=== PATIENT | male | born 1960 | race Caucasian/White ===

== ENCOUNTER 2019-07-14 10:02 | Inpatient (IN) | payer MEDICAID ==
[~2019-07-14] VITALS: Ht 177.8 cm; Wt 153.3 kg
[2019-07-14 10:42] LABS: HEMATOCRIT 46.2 % (42.0-54.0); HEMOGLOBIN 15.5 g/dL (13.5-17.5); LYMPHOCYTES 26.8 % (15-50); MCH 27.5 pg (26.0-34.0); MCHC 33.5 g/dL (31.0-37.0); MCV 81.9 fL (80.0-100.0); MEAN PLATELET VOLUME 10.4 fL (7.4-10.4); NEUTROPHILS 66.5 % (40-80); PLATELET COUNT 169 10x3/uL (130-400); RBC 5.64 10x6/uL (4.20-6.10); RDW 12.9 % (11.5-14.5); WBC 6.6 10x3/uL (4.8-10.8)
[2019-07-14 10:47] LABS: KETONE - SERUM NEGATIVE (NEGATIVE)
[2019-07-14 10:56] LABS: ALBUMIN 3.8 g/dL (3.4-5.0); ALKALINE PHOSPHATASE 132 U/L (46-116); ALT (SGPT) 38 U/L (10-68); BILIRUBIN - TOTAL 0.79 mg/dL (0.2-1.3); CALCIUM 9.7 mg/dL (8.5-10.1); CARBON DIOXIDE 29.4 mmol/L (21.0-32.0); CHLORIDE - SERUM 90 mmol/L (98-107); CREATININE - SERUM 0.9 mg/dL (0.6-1.3); MAGNESIUM - SERUM 2.1 mg/dL (1.8-2.4); POTASSIUM - SERUM 4.6 mmol/L (3.5-5.1); PROTEIN - SERUM 8.5 g/dL (6.4-8.2); SODIUM 126 mmol/L (136-145); UREA NITROGEN 25 mg/dL (7-18); eGFR NON AFRICAN AMERICAN > 90 mL/min (90-120)
[2019-07-14 10:58] LABS: CALC OSMOLALITY 291 mosm/kg (275-300); GLUCOSE 731 mg/dL (74-106)
--- NOTE | 2019-07-14 11:30 | NUR ---
URINE SENT TO THE LAB
[2019-07-14 11:38] LABS: APPEARANCE CLEAR (CLEAR); COLOR STRAW (YELLOW); GLUCOSE 1000 mg/dL (NEGATIVE); KETONE LARGE mg/dL (NEGATIVE); NITRITE NEGATIVE (NEGATIVE); PROTEIN NEGATIVE (NEGATIVE); SPECIFIC GRAVITY 1.005 (1.005-1.020)
[2019-07-14 11:39] LABS: BILIRUBIN NEGATIVE (NEGATIVE); UROBILINOGEN NORMAL (NORMAL)
--- NOTE | 2019-07-14 11:44 | NUR ---
BLOOD SUGAR 534
[2019-07-14 12:44] VITALS: BP 116/76
--- NOTE | 2019-07-14 12:55 | NUR ---
PT ARRIVED TO FLOOR FROM ER. FAMILY AT BEDSIDE. VSS AND WNL. DENIES ANY NEEDS AT THIS TIME. WILL CONT TO FOLLOW POC
[2019-07-14 16:08] VITALS: BP 112/81
--- NOTE | 2019-07-14 16:58 | NUR ---
PT SITTING ON SIDE OF BED EATING SUPPER. FAMILY AT BEDSIDE. DENIES ANY NEEDS AT THIS TIME, WILL CONT TO FOLLOW POC
--- NOTE | 2019-07-14 18:01 | NUR ---
PATIENT HAS ARRIVED FROM [facility]. ADMISSION HAS BEEN DONE. PATIENT CAME INTO ER TODAY WITH NEW ONSET DIABETES. BLOOD SUGAR HAS BEEN TREATED. PATIENT IS ALERT AND AWAKE AND IS SITTING UP IN BED. FAMILY AT BEDSIDE.
[2019-07-14 20:00] VITALS: BP 164/84
--- NOTE | 2019-07-14 22:00 | NUR ---
INITIAL ROUNDS COMPLETED AT 1910 HRS. PT DENIED ANY DISCOMFORT. ASSESSMENT COMPLETED AT 1935 HRS. VSS. ALERT AND ORIENTED TO PERSON, PLACE AND TIME. TRUJILLO. IV TO LAC WITH NS AT 100CC/HR. IV PATENT. LUNGS CTA. TRUJILLO. PM FSBS 337. 20 UNITS REG INSULIN GIVEN SUB-Q TO UPPER R ARM. PM SNACK SERVED. PT CURRENTLY WATCHNG TV. SR UP X2,CALL LIGHT WITHIN REACH AND FAMILY AT BEDSIDE.
--- NOTE | 2019-07-14 23:45 | NUR ---
PT RESTING WITH EYES CLOSED. RESP EVEN AND REGULAR. SR UP X1, CALL LIGHT WITHIN REACH.
[2019-07-15] VITALS: BP 106/58
--- NOTE | 2019-07-15 02:08 | NUR ---
PT RESTING WITH EYES CLOSED. RESP EVEN AND REGULAR. SR UP X1, CALL LIGHT WITHIN REACH.
[2019-07-15 04:00] VITALS: BP 112/82
--- NOTE | 2019-07-15 04:15 | NUR ---
PT RESTING WITH EYES CLOSED. RESP EVEN AND REGULAR. SR UP X2, CALL LIGHT WITHIN REACH.
[2019-07-15 04:50] LABS: CHOL - HDL RATIO 7.5 ratio (2.3-4.9); CHOLESTEROL, TOTAL 157 mg/dL (0-200); HDL CHOLESTEROL 21 mg/dL (32-96); TRIGLYCERIDE 458 mg/dL (30-200)
--- NOTE | 2019-07-15 06:38 | NUR ---
AM FSBS 313. 20 UNTS REG INSULIN GIVEN SUB-Q TO UPPER L ARM PER S/S. VSS THROUGHOUT NIGHT. RESTED WELL DURING SHIFT. NEEDS MET; WILL CONTINUE TO MONITOR.
--- NOTE | 2019-07-15 07:46 | NUR ---
PATIENT IS RESTING ON HIS BACK IN BED. FAMILY AT BEDSIDE. LIGHTS ARE DIM.
[2019-07-15 07:58] VITALS: BP 118/55
--- NOTE | 2019-07-15 10:45 | NUR ---
EDUCATION ABOUT DIABETIC FOOT CARE GIVEN TO PATIENT AND FAMILY.
[2019-07-15 12:41] VITALS: BP 116/75
[2019-07-15 17:04] VITALS: BP 122/63
--- NOTE | 2019-07-15 19:35 | NUR ---
INITIAL ROUNDS COMPLETED. PT DENIES ANY DISCOMFORT. CALL LIGHT WITHIN REACH.
[2019-07-15 20:00] VITALS: BP 115/69
--- NOTE | 2019-07-15 22:49 | NUR ---
ASSESSMENT COMPLETED AT 1955 HRS. VSS. ALERT AND ORIENTED TO PERSON, PLACE AND TIME. TRUJILLO. IV TO LAC WITH NS AT 100CC/HR. IV PATENT. LUNGS CTA. TRUJILLO. PM FSBS 311. 20 UNITS REG INSULIN GIVEN SUB-Q TO UPPER L ARM. PM LANTUS GIVEN. PT TOOK A HIBICLENS SHOWER. BED LINENS CHANGED. PT REFUSED FOR IV TO BE HOOKED BACK UP AFTER SHOWER. PT CURRENTLY RESTING WITH EYES CLOSED. RESP EVEN AND REGULAR. SR UP X2, CALL LIGHT WITHIN REACH AND SISTER AT BEDSIDE.
[2019-07-16] VITALS: BP 101/65
--- NOTE | 2019-07-16 00:06 | NUR ---
PT RESTING WITH EYES CLOSED. RESP EVEN AND REGULAR. SR UP X1, CALL LIGHT WITHIN REACH.
--- NOTE | 2019-07-16 01:52 | NUR ---
PT RESTING WITH EYES CLOSED. RESP EVEN AND REGULAR. SR UP X1, CALL LIGHT WITHIN REACH.
[2019-07-16 04:00] VITALS: BP 114/71
--- NOTE | 2019-07-16 04:35 | NUR ---
PT RESTING WITH EYES CLOSED. RESP EVEN AND REG. SR UP X2, CALL LIGHT WITHIN REACH.
[2019-07-16 05:53] LABS: BASOPHILS 0.2 % (0-2); EOSINOPHILS 3.4 % (0-7); HEMATOCRIT 40.6 % (42.0-54.0); HEMOGLOBIN 13.1 g/dL (13.5-17.5); IMMATURE GRANULOCYTES 2.6 % (0-5); LYMPHOCYTES 36.2 % (15-50); MCH 27.6 pg (26.0-34.0); MCHC 32.3 g/dL (31.0-37.0); MEAN PLATELET VOLUME 10.3 fL (7.4-10.4); NEUTROPHILS 50.6 % (40-80); PLATELET COUNT 157 10x3/uL (130-400); RBC 4.74 10x6/uL (4.20-6.10)
[2019-07-16 06:04] LABS: CALCIUM 8.1 mg/dL (8.5-10.1); CARBON DIOXIDE 27.3 mmol/L (21.0-32.0); CHLORIDE - SERUM 102 mmol/L (98-107); SODIUM 137 mmol/L (136-145)
[2019-07-16 06:08] LABS: CALC OSMOLALITY 280 mosm/kg (275-300); CREATININE - SERUM 0.6 mg/dL (0.6-1.3); GLUCOSE 238 mg/dL (74-106); MCV 85.7 fL (80.0-100.0); POTASSIUM - SERUM 3.4 mmol/L (3.5-5.1); UREA NITROGEN 10 mg/dL (7-18); WBC 4.7 10x3/uL (4.8-10.8); eGFR NON AFRICAN AMERICAN > 90 mL/min (90-120)
--- NOTE | 2019-07-16 07:31 | NUR ---
PATIENT IS SITTING UP IN BED. MORE TEACHING COMPLETED TO HIM AND HIS FAMILY ABOUT DIABETIC DIET. RESOURCES GIVEN. PATIENT DENIES ANY NEEDS AT THIS TIME.
[2019-07-16 08:27] VITALS: BP 115/71
--- NOTE | 2019-07-16 14:29 | MORECARE ---
CASE MANAGEMENT DISCHARGE SUMMARY PATIENT: DEE FAJARDO UNIT: [id number] ADM DATE: 07/14/19 AGE: 58 : 58 SEX: M ROOM/BED: D.2135 AUTHOR: SILAS AJ PHYSICIAN: REFERRING PHYSICIAN: SALLY MCGINNIS MD DATE OF SERVICE: 07/16/19 Discharge Plan Patient Name: [facility]EE FAJARDO [facility] : 1960 Planned Disposition: Home Anticipated Discharge Date: Discharge Date: Expected LOS: Initial Reviewer: [email or web address] Initial Review Date: 07/16/2019 Generated: 07/16/19 3:28 pm DCPIA - Discharge Planning Initial Assessment Updated by [email or web address]: Krista Platt on 07/16/19 2:28 pm * Is the patient Alert and Oriented? Yes * PCP WILL CALL WITH NAME * Pharmacy [facility] [place] * Preadmission Environment Home with Family * ADLs Independent * Other Equipment NONE * List name and contact numbers for known caregivers / representatives who currently or will assist patient after discharge: SISTER FERNANDEZ, * Additional services required to return to the preadmission environment? Yes * Can the patient safely return to the preadmission environment? Yes * Has this patient been hospitalized within the prior 30 days at any hospital? No Patient Name: DEE FAJARDO Page [phone] at 1429 All edits/amendments must be made on the electronic document DICTATION DATE: 07/16/191427 STEAM AND POWER SUPERVISOR: JENNIE 07/16/191427 RPT#: [id number] DC DATE: STATUS: ADM IN [facility] [address] [place] [address] END OF REPORT
--- NOTE | 2019-07-16 14:37 | MORECARE ---
CASE MANAGEMENT DISCHARGE SUMMARY PATIENT: DEE FAJARDO UNIT: [id number] ADM DATE: 07/14/19 AGE: 58 : 58 SEX: M ROOM/BED: D.1632 AUTHOR: MADAIDOC PHYSICIAN: REFERRING PHYSICIAN: SALLY MCGINNIS MD DATE OF SERVICE: 07/16/19 Discharge Plan Patient Name: DEE FAJARDO Facility: [facility]:[place] : 1960 Planned Disposition: Home Anticipated Discharge Date: Discharge Date: Expected LOS: Initial Reviewer: [email or web address] Initial Review Date: 07/16/2019 Generated: 07/16/19 3:36 pm DCP- Discharge Planning Updated by [email or web address]: Krista Platt on 07/16/19 1:[address] Patient Name: DEE FAJARDO Admission Status: ER Accout number: [id number] Admission Date: 07-14-2019 : 1960 Admission Diagnosis: Attending: SALLY MCGINNIS Current LOS: 2 Anticipated DC Date: Planned Disposition: Home Primary Insurance: MEDICAID [place] PENDING Discharge Planning Comments: CM MET WITH PATIENT TO DISCUSS DC PLANNING/NEEDS AFTER OBTAINING VERBAL CONSENT. PATIENT STATES MEDICAID IS PENDING BUT ONCE IT IS APPROVED HE WOULD LIKE HOME HEALTH FOR NEW DIABETIC TEACHING. HE IS CALLING ME LATER WITH HIS PCP NAME AND THE HH HE WOULD BE INTERESTED IN IF POSSIBLE. I WILL GIVE HIM INFORMATION ABOUT [facility] AND [facility]UNITY [facility]IST[facility] RX PROGRAM AND INFORMATION FOR GLUCOMETER PRICES. STATES LIVES WITH SISTER AND IS A SAFE ENVIRONMENT. DOESN'T KNOW YET IF HE WILL BE ON INSULIN INJECTIONS AT HOME OR PILLS. CM WILL FOLLOW AND ASSIST. Bookmobile Librarian: Krista Platt DCPIA - Discharge Planning Initial Assessment Updated by [email or web address]: Krista Platt on 07/16/19 2:28 pm * Is the patient Alert and Oriented? Yes * PCP WILL CALL WITH NAME * [facility] * Preadmission Environment Home with Family * ADLs Independent * Other Equipment NONE * List name and contact numbers for known caregivers / representatives who currently or will assist patient after discharge: SISTER FERNANDEZ, * Additional services required to return to the preadmission environment? Yes * Can the patient safely return to the preadmission environment? Yes * Has this patient been hospitalized within the prior 30 days at any hospital? No Last DP export: 07/16/19 1:29 Patient Name: DEE FAJARDO Page [id number] at 1437 All edits/amendments must be made on the electronic document DICTATION DATE: 07/16/191435 BROMINATION EQUIPMENT OPERATOR: JENNIE 07/16/191435 RPT#: [id number] DC DATE: STATUS: ADM IN [facility] [address] [place] [address] END OF REPORT
[2019-07-16 15:07] VITALS: Ht 177.8 cm; Wt 153.3 kg
[2019-07-16 17:19] VITALS: BP 91/67
--- NOTE | 2019-07-16 19:25 | NUR ---
ALERT AND DENIES NEEDS ASKS IF HE CAN STILL EAT FULL SUGAR ICE CREAM ATTEMPT MADE TO EDUCATE PT ABOUT HIS PREFERED DIET. LCTA SKIN WARM AND DRY AND BED LOW AND LOCKED CALL LIGHT IS IN REACH VISITOR IS PRESENT
[2019-07-16 20:00] VITALS: BP 112/74
[2019-07-17] VITALS: BP 112/66
[2019-07-17 04:00] VITALS: BP 121/79
--- NOTE | 2019-07-17 05:35 | NUR ---
FOUND IV OUT CATHETER INTACT
[2019-07-17 06:22] LABS: CALC OSMOLALITY 278 mosm/kg (275-300); CALCIUM 8.3 mg/dL (8.5-10.1); CARBON DIOXIDE 26.9 mmol/L (21.0-32.0); CHLORIDE - SERUM 105 mmol/L (98-107); CREATININE - SERUM 0.6 mg/dL (0.6-1.3); POTASSIUM - SERUM 3.5 mmol/L (3.5-5.1); SODIUM 138 mmol/L (136-145); UREA NITROGEN 9 mg/dL (7-18); eGFR NON AFRICAN AMERICAN > 90 mL/min (90-120)
[2019-07-17 06:24] LABS: GLUCOSE 177 mg/dL (74-106)
--- NOTE | 2019-07-17 07:00 | NUR ---
RECEIVED REPORT. ASSUMED CARE OF PATIENT. BEDSHIFT ROUNDING COMPLETE. PATIENT RESTING WITH EYES CLOSED AT THIS TIME. RESP EVEN AND UNLABORED. CALL LIGHT WITHIN REACH. NO DISTRESS. NO FAMILY AT BEDSIDE. WHITE BOARD UPDATED.
--- NOTE | 2019-07-17 08:11 | NUR ---
PATIENT AWAKE NOW AND SITTING UP TO EAT AM MEAL, CALL LIGHT WITHIN REACH. DENIES NEEDS. THANKED THIS PERFORMANCE IMPROVEMENT SPECIALIST FOR LETTING HIM SLEEP THIS AM. NO DISTRESS.
[2019-07-17 08:45] LABS: BASOPHILS 0.2 % (0-2); EOSINOPHILS 2.4 % (0-7); HEMATOCRIT 43.7 % (42.0-54.0); HEMOGLOBIN 14.1 g/dL (13.5-17.5); LYMPHOCYTES 35.4 % (15-50); MCHC 32.3 g/dL (31.0-37.0); MCV 86.7 fL (80.0-100.0); MEAN PLATELET VOLUME 9.9 fL (7.4-10.4); MONOCYTES 8.1 % (2-11); NEUTROPHILS 51.9 % (40-80); PLATELET COUNT 157 10x3/uL (130-400); RBC 5.04 10x6/uL (4.20-6.10); RDW 13.1 % (11.5-14.5)
--- NOTE | 2019-07-17 11:52 | NUR ---
FSBS 214. 12 UNITS HUMULIN R ADMINISTERED PER SLIDING SCALE. NO DISTRESS.
[2019-07-17 12:05] VITALS: BP 125/82
[2019-07-17] MEDS ORDERED: LISINOPRIL10 MG PO (14:23)
[2019-07-17] MEDS ORDERED: LANTUS SOL100 UNIT/1 SC (14:24)
[2019-07-17] MEDS ORDERED: GLUCOPHAGE1000 MG PO (14:24)
--- NOTE | 2019-07-17 15:06 | NUR ---
UPON ADMIT, NO FLU SHOT FOR THIS YEAR. WHEN QUESTIONED FOR DISCHARGE, PATIENT REPORTS THAT HE DOES NOT TAKE THEM.
--- NOTE | 2019-07-17 15:25 | NUR ---
ELSA HANSON CM TO GIVE [facility]ITY [facility] PROGRAM CARD FOR ME TO GIVE PATIENT. I ALSO PRINTED OFF INFO FROM [employer] FOR [facility] ASSISTANCE.
--- NOTE | 2019-07-17 16:40 | NUR ---
EXTENSIVE DISCHARGE TEACHING DONE ON DIABETES COMPLETED WITH TEACH BACK FROM PATIENT. PATIENT MILLA UP HIS OWN INSULIN AND ADMINISTERED WITHOUT DIFFICULTY. PATIENTS SISTER AT BEDSIDE DURING TEACHING. 1 HOUR SPENT AT BEDSIDE FOR TEACHING.
--- NOTE | 2019-07-17 16:42 | NUR ---
PATIENT LEFT UNIT AMBULATING AT THIS TIME. PATIENT DISCHARGED TO HOME WITH HIS SISTER. PATIENT LEFT UNIT WITH ALL PERSONAL BELONGINGS AT THIS TIME. NO DISTRESS UPONE LEAVING UNIT.
--- NOTE | 2019-07-18 07:11 | MORECARE ---
CASE MANAGEMENT DISCHARGE SUMMARY PATIENT: DEE FAJARDO UNIT: [id number] ADM DATE: 07/14/19 AGE: 58 : 58 SEX: M ROOM/BED: D.0407 AUTHOR: MADAI,DOC PHYSICIAN: REFERRING PHYSICIAN: SALLY MCGINNIS MD DATE OF SERVICE: 07/18/19 Discharge Plan Patient Name: DEE FAJARDO Facility: [facility]:[place] : 1960 Planned Disposition: Home Anticipated Discharge Date: 07/17/19 Discharge Date: 07/17/2019 Expected LOS: 3 Initial Reviewer: [email or web address] Initial Review Date: 07/16/2019 Generated: 07/18/19 8:11 am DCP- Discharge Planning Updated by [email or web address]: Krista Platt on 07/16/19 1:[address] Patient Name: DEE FAJARDO Admission Status: ER Accout number: [id number] Admission Date: 07-14-2019 : 1960 Admission Diagnosis: Attending: SALLY MCGINNIS Current LOS: 2 Anticipated DC Date: Planned Disposition: Home Primary Insurance: MEDICAID [place] PENDING Discharge Planning Comments: CM MET WITH PATIENT TO DISCUSS DC PLANNING/NEEDS AFTER OBTAINING VERBAL CONSENT. PATIENT STATES MEDICAID IS PENDING BUT ONCE IT IS APPROVED HE WOULD LIKE HOME HEALTH FOR NEW DIABETIC TEACHING. HE IS CALLING ME LATER WITH HIS PCP NAME AND THE HH HE WOULD BE INTERESTED IN IF POSSIBLE. I WILL GIVE HIM INFORMATION ABOUT [facility] AND [facility]UNITY ASSIST[facility] RX PROGRAM AND INFORMATION FOR GLUCOMETER PRICES. STATES LIVES WITH SISTER AND IS A SAFE ENVIRONMENT. DOESN'T KNOW YET IF HE WILL BE ON INSULIN INJECTIONS AT HOME OR PILLS. CM WILL FOLLOW AND ASSIST. Pigment Making Supervisor: Krista Platt DCPIA - Discharge Planning Initial Assessment Updated by [email or web address]: Krista Platt on 07/16/19 2:28 pm * Is the patient Alert and Oriented? Yes * PCP WILL CALL WITH NAME * [facility] * Preadmission Environment Home with Family * ADLs Independent * Other Equipment NONE * List name and contact numbers for known caregivers / representatives who currently or will assist patient after discharge: SISTER FERNANDEZ, * Additional services required to return to the preadmission environment? Yes * Can the patient safely return to the preadmission environment? Yes * Has this patient been hospitalized within the prior 30 days at any hospital? No Last DP export: 07/16/19 1:37 Patient Name: DEE FAJARDO Page [phone] at 0711 All edits/amendments must be made on the electronic document DICTATION DATE: 07/18/19710 ENGINEERING SUPPLIES SALES: JENNIE 07/18/19710 RPT#: [id number] DC DATE:07/17/19 STATUS: DIS IN [facility] [address] [place] [address] END OF REPORT
== END 2019-07-17 16:56 | disposition home or self-care (01) | DRG 637 ==
LOC: D.ER 10:02 → D.M2 11:44 → D.M3 11:44 → D.M2 17:35
PROVIDERS: Family Medicine; ADMIT Internal Medicine Nephrology; ATTEND Internal Medicine Nephrology
DX: E11.65 Type 2 diabetes mellitus with hyperglycemia (principal); J96.01 Acute respiratory failure with hypoxia; N17.9 Acute kidney failure, unspecified; E87.1 Hypo-osmolality and hyponatremia; Z68.41 Body mass index [BMI] 40.0-44.9, adult; E66.01 Morbid (severe) obesity due to excess calories